=== PATIENT | male | born 1995 | race Caucasian/White ===

== ENCOUNTER 2021-11-02 03:21 | Emergency (ER) | payer OTHER ==
[~2021-11-02] VITALS: Ht 167.6 cm; Wt 65.8 kg
[2021-11-02 03:24] VITALS: BP 134/70
[2021-11-02] MEDS: ACETAMINOPHEN 325 MG TABLET PO ONE (04:07)
[2021-11-02] MEDS ORDERED: ACETAMINOPHEN 325 MG TABLET ONE (04:07)
--- NOTE | 2021-11-02 05:18 | NUR ---
Patient discharged to home in stable condition. Written and verbal after care instructions given. Patient verbalizes understanding of instruction.
== END 2021-11-02 05:28 ==
LOC: ER 03:24
DX: S09.93XA Unspecified injury of face, initial encounter (principal); Y04.8XXA Assault by other bodily force, initial encounter; Y93.89 Activity, other specified; Y92.89 Other specified places as the place of occurrence of the external cause; Y99.8 Other external cause status
CPT/HCPCS: 70110-TC; 72050-TC